=== PATIENT | male | born 1980 ===

== ENCOUNTER 2020-11-22 14:29 | Emergency (ER) | payer SELFPAY ==
[2020-11-22] MEDS ORDERED: LIDOCAINE (1%) 10 MG/1 ML VIAL 20 ML MDV INFILTRATI ONE (14:31)
--- NOTE | 2020-11-22 14:33 | Event Note ---
ED Screening Note Date of service: 11/22/20 Time: 14:32 ED Screening Note: Pt presents with c/o right forearm laceration from piece of metal Onset just [employer] He reports that he has had tetanus in past 5 years This initial assessment/diagnostic orders/clinical plan/treatment(s) is/are subject to change based on patients health status, clinical progression and re- assessment by fellow clinical providers in the ED. Further treatment and workup at subsequent clinical providers discretion. Patient/guardian urged not to elope from the ED as their condition may be serious if not clinically assessed and managed. Initial orders include: xray/lac repair
[2020-11-22 14:35] VITALS: BP 128/79
--- NOTE | 2020-11-22 15:23 | XRay Report ---
RIGHT FOREARM 3 VIEW(S) INDICATION / CLINICAL INFORMATION: laceration COMPARISON: None available. FINDINGS: BONES / JOINT(S): No acute fracture or subluxation. No significant arthritis. SOFT TISSUES: Mild edema at the dorsal forearm with mild possible subcutaneous air. No radiopaque for eign object. ADDITIONAL FINDINGS: None. Signer Name: Dashawn Hall MD Signed: 11/22/2020 3:18 PM Workstation Name: [id number]
--- NOTE | 2020-11-22 20:56 | Emergency Department Report ---
ED General Adult HPI - General Chief complaint: Laceration/Recheck/Suture Stated complaint: RT ARM CUT Time Seen by Provider: 11/22/20 20:53 Source: patient Mode of arrival: Ambulatory Limitations: No Limitations - History of Present Illness Initial comments: 40-year-old [id number] male patient presents to the emergency department with complaints of a laceration to his right forearm occurring earlier today. Patient states he accidentally cut himself with a piece of metal while he was at work. Tetanus is up-to-date. Denies shoulder pain, elbow pain, wrist pain, hand pain, paresthesias, numbness, weakness, skin color changes. Denies all other complaints at this time. - Related Data Previous Rx's Medication Instructions Recorded Last Taken Type Mupirocin [Bactroban 2%] 1 applic TP TID #1 tube 11/22/20 Unknown Rx Allergies Allergy/AdvReac Type Severity Reaction Status Date / Time No Known Allergies Allergy Unverified 11/22/20 14:30 ED Review of Systems ROS: Stated complaint: RT ARM CUT Other details as noted in HPI Other: GENERAL: Negative for fever. CARDIOVASCULAR: Negative for chest pain. PULMONARY: Negative for shortness of breath. GASTROINTESTINAL: Negative for abdominal pain. MUSCULOSKELETAL: Negative for back pain. NEUROLOGICAL: Negative for headache. INTEGUMENTARY: Positive for laceration. ED Past Medical Hx - Past Medical History Previous Medical History?: No - Surgical History Past Surgical History?: No - Medications Home Medications: Home Medications Medication Instructions Recorded Confirmed Last Taken Type Mupirocin [Bactroban 2%] 1 applic TP TID #1 tube 11/22/20 Unknown Rx ED Physical Exam - General Limitations: No Limitations - Other Other exam information: General: Awake, appropriately interactive, no acute distress. Neck: Supple. Full range of motion intact. Cardiovascular: Normal peripheral perfusion. Pulmonary: No respiratory distress. Patient is speaking normally without use of accessory muscles. Skin: 6 cm vertical laceration to the right forearm involving skin and subcutaneous tissue. Wound edges are poorly approximated. Wound does not appear grossly contaminated. No evidence of retained foreign body. Distal neurovascular and motor/sensory function intact. Neurological: No facial asymmetry. Speech is clear. Follows commands. Patient is alert and oriented. Musculoskeletal: Moves all four extremities spontaneously with normal range of motion. Psych: Cooperative. Appropriate mood and affect. ED Course Vital Signs 11/22/20 14:34 Temperature 98.4 F Pulse Rate 75 Respiratory 13 Rate Blood Pressure 128/79 O2 Sat by Pulse 96 Oximetry - Procedure Description Procedures done: Verbal consent was obtained from the patient. The site was identified. The area was prepped in sterile fashion. Hand hygiene observed. The area was cleansed with saline and Betadine. Lidocaine 1% was used for anesthetic. Approximately 6 mL of anesthetic was infiltrated along the wound edges. A combination of 3-0 Prolene and 4-0 Prolene sutures were used for pr imary wound closure. A total of 8 sutures were placed in a simple interrupted fashion. Antibiotic ointment was applied. Wound dressing was applied. Estimated blood loss < 2 mL. Patient tolerated procedure well without complications. ED Medical Decision Making - Medical Decision Making Patient presents to the emergency department with complaints of an accidental laceration to his right forearm occurring today. X-rays obtained during medical screening exam without evidence of retained foreign body. Tetanus is up-to-date. Laceration repaired without complications. See procedure note for details. Patient will be discharged home and instructed to follow-up with primary care provider for wound recheck and suture removal. Patient expressed understanding and is agreeable to plan of care. Wound care precautions discussed. Strict return precautions provided. Repeat exam is unremarkable and benign. History, exam, diagnostic testing, and current condition do not suggest worrisome pathology to warrant further testing, continued ED treatment, admission, or surgical evaluation at this point. Given the low probability of a significant medical illness, it would be more likely to result in harm than benefit to perform further testing at this stage. Discussed findings, presumptive diagnosis, need for follow-up and specific signs/symptoms that should prompt immediate return to the emergency department. Instructions were explained in detail to the patient in addition to giving written discharge information. Patient expressed understanding and was given the opportunity to ask questions, all of which were satisfactorily answered prior to discharge home. Critical care attestation.: If time is entered above; I have spent that time in minutes in the direct care of this critically ill patient, excluding procedure time. ED Disposition Clinical Impression: Forearm laceration Qualifiers: Encounter type: initial encounter Laterality: right Qualified Code(s): S51.811A - Laceration without foreign body of right forearm, initial encounter Disposition: TO HOME OR SELFCARE Is pt being admited?: No Does the pt Need Aspirin: No Condition: Stable Instructions: Sutured Wound Care, [id number] Additional Instructions: Take Tylenol every 4 hours and Motrin every 8 hours as needed for pain. Apply Bactroban ointment to affected area 3 times daily. Keep wound clean and covered. Change dressing daily. These sutures will not dissolve on their own. Follow-up with primary care provider in 7 to 10 days for suture removal. Call Tuesday to schedule an appointment. Return to the emergency department immediately for new or worsening symptoms. Prescriptions: Mupirocin [Bactroban 2%] 1 applic TP TID #1 tube Referrals: [facility] [Provider Group] - 3-5 Days Forms: Work/School Release Form(ED) Time of Disposition: 21:34
[2020-11-22] MEDS ORDERED: LIDOCAINE (2%) 20 MG/1 ML VIAL 20 ML MDV INFILTRATI ONE (20:58)
[2020-11-22] MEDS ORDERED: NEOMY 3.5 MG/BACIT 400 UNITS/POLY B 5000 UNITS/GM OINT PACKET TP ONE (21:35)
== END 2020-11-22 21:48 | disposition home or self-care (01) ==
LOC: ED 14:29
DX: S51.811A Laceration without foreign body of right forearm, initial encounter (principal); Z79.899 Other long term (current) drug therapy; W45.8XXA Other foreign body or object entering through skin, initial encounter; Y93.89 Activity, other specified; Y92.89 Other specified places as the place of occurrence of the external cause; Y99.0 Civilian activity done for income or pay
CPT/HCPCS: 12002; 73090; 99283; A6250